=== PATIENT | male | born 1945 | race Caucasian/White ===

== ENCOUNTER 2016-09-22 08:17 | Emergency (ER) | payer MEDICARE ==
[~2016-09-22] VITALS: Ht 188 cm; Wt 102.3 kg
[~2016-09-22 08:17] MED LIST: ACIDOPHILUS PO; AMBIEN 5MG TABLE5 MG PO; AMOXICILLIN 50500 MG PO; APRESOLINE 10MG10 MG PO; ASPIRIN 81M81 MG/TA2 PO; ASPIRIN E.C. 8181 MG PO; B-121000 MCG PO; BACTRIM DS 8001 TAB PO; BENAZEPRIL20 MG PO; CENTRUM SILVER1 TA1 PO; CIPRO PO; DEMADEX 20MG20 M1 PO; DUO-KAPS1 CAP PO; EPA1000 MG PO; FLAGYL PO; FLAGYL250 MG PO; FLAGYL500 MG PO; FLOMAX 0.40.4 MG/CAP PO; FLOMAX0.4 MG PO; HCTZ 25MG25 MG PO; HYTRIN1 M1 PO; IMDUR 60MG60 MG/TAB PO; IMDUR60 MG PO; INVANZ INJ1 G/VIAL IV; KLOR-CON M2020 MEQ PO; LASIX 20MG TABL20 MG PO; LASIX 40MG TABL40 MG PO; LASIX 80MG TABL80 MG PO; LASIX40 MG PO; LEXAPRO10 MG PO; LIPITOR 80MG80 MG PO; LOTENSIN20 MG PO; MULTI VITAMINS1 TAB PO; MULTI-VITAMIN1 CTB PO; NEULASTA 66 MG/0.6 M SC; NORCO 325 MG-51 TAB PO; OMEGA 31000 MG PO; PLAVIX 75MG TAB75 MG PO; PROCRIT2000 U/ML IM; PROTONIX 40MG T40 MG PO; PROTONIX40 MG PO; PULMICORT180 MCG/A2 IH; SODIUM BICARB PO; SODIUM BICARBONATE PO; TOPROL XL 25MG25 MG PO; TOPROL XL 50MG50 MG PO; TOPROL XL50 MG PO; TYLENOL 500MG500 MG PO; TYLENOL 8 HR PO; UNKOWN; VANCOCIN H250 MG/CAP PO; VANCOMYCIN 11 G/VIAL IV; VANCOMYCIN250 MG/5 M PO; VIDAZA SC; VITAMIN B-1000 MCG/T PO; VITAMIN B121000 MCG PO; ZAROXOLYN 2.52.5 MG PO; ZOCOR80 MG PO; ZYLOPRIM 300MG300 MG PO; ZYLOPRIM100 MG PO; [UNRECOGNIZED DRUG - OTHER] IV
[2016-09-22 08:20] VITALS: TEMP 96.3
[2016-09-22 09:28] LABS: ADJUSTED CALCIUM 9.1 mg/dL (8.4-10.2); ALANINE AMINOTRANSFERASE 27 U/L (21-72); ALBUMIN 3.2 gm/dL (3.5-5.0); ALKALINE PHOSPHATASE 85 U/L (50-136); ANION GAP 11 mmol/L (7-16); BILIRUBIN,TOTAL 0.9 mg/dL (0.0-1.0); BLOOD UREA NITROGEN 67 mg/dL (9-20); CALCIUM 8.5 mg/dL (8.4-10.2); CARBON DIOXIDE 22 mmol/L (22-30); CHLORIDE 109 mmol/L (98-107); CREATININE, serum 2.56 mg/dL (0.66-1.25); GLUCOSE 155 mg/dL (74-106); LIPASE 143 U/L (23-300); SODIUM 142 mmol/L (137-145); TOTAL PROTEIN 6.5 gm/dL (6.4-8.2)
[2016-09-22 09:43] LABS: TROPONIN-I < 0.012 ng/mL (0.000-0.034)
[2016-09-22] MEDS ORDERED: ZYLOPRIM 300MG300 MG PO (10:40)
[2016-09-22] MEDS ORDERED: ASPIRIN 81M81 MG/TA2 PO (10:41)
[2016-09-22 10:59] LABS: EOS # 0.2 (0.0-0.7); EOS % 7.5 % (0-4.0); GRAN # 2.3 (1.4-6.5); INR 1.2 (0.8-3.0); LYMPH # 0.4 (1.2-3.4); MEAN CELL VOLUME 87 fl (80.0-100.0); MEAN CORPUSCULAR HGB CONC 30 g/dl (33.0-37.0); MONO # 0.2 (0.1-0.6); MONO % 5.5 % (1.7-9.3); PARTIAL THROMBOPLASTIN TIME 52.5 SECONDS (26.0-37.0); PROTHROMBIN TIME 13.9 SECONDS (9.7-12.8); RED BLOOD COUNT 3.74 M/mm3 (4.20-5.60); REDCELL DISTRIBUTION WIDTH-CV 16.9 % (11.5-14.5); WHITE BLOOD COUNT 3.1 K/mm3 (4.8-10.8)
[2016-09-22 11:03] LABS: HEMATOCRIT 32.7 % (42.0-52.0); HEMOGLOBIN 9.7 g/dl (13.5-18.0); MEAN CORPUSCULAR HEMOGLOBIN 26 pg (27.0-31.0)
[2016-09-22 11:05] LABS: PLATELET COUNT 45 K/mm3 (130-400)
[2016-09-22] MEDS ORDERED: NORCO 325 MG-51 TAB PO (12:33)
[2016-09-22 12:48] VITALS: BP 125/73; PULSE 64
== END 2016-09-22 12:50 | disposition home or self-care (01) ==
LOC: COL.ER 08:17
PROVIDERS: Emergency Medicine
DX: M79.602 Pain in left arm (principal); I10 Essential (primary) hypertension; Z95.2 Presence of prosthetic heart valve; I49.3 Ventricular premature depolarization; Z79.01 Long term (current) use of anticoagulants; Z79.82 Long term (current) use of aspirin

== ENCOUNTER 2016-10-12 11:00 | Outpatient (RCR) | payer MEDICARE ==
[2016-10-12] VITALS (10 sets, daily range): BP systolic 120–150; BP diastolic 51–75; PULSE 68–83; TEMP 97.4–98.1
[2016-10-12] MEDS ORDERED: VIDAZA100 MG SC (11:45)
[2016-12-17] MEDS ORDERED: LASIX 80MG TABL80 MG PO (16:07)
[2016-12-17] MEDS ORDERED: APRESOLINE 10MG10 MG PO (16:08)
[2016-12-17] MEDS ORDERED: ZYLOPRIM 300MG300 MG PO (16:08)
[2016-12-17] MEDS ORDERED: PROTONIX 40MG T40 MG PO (16:08)
[2016-12-17] MEDS ORDERED: ASPIRIN E.C. 8181 MG PO (16:09)
[2016-12-17] MEDS ORDERED: B-121000 MCG PO (16:09)
[2016-12-17] MEDS ORDERED: MULTI VITAMINS1 TAB PO (16:09)
[2016-12-17] MEDS ORDERED: FLOMAX 0.40.4 MG/CAP PO (16:10)
[2016-12-17] MEDS ORDERED: IMDUR 60MG60 MG/TAB PO (16:11)
[2016-12-17] MEDS ORDERED: LIPITOR 40MG TA40 MG PO (16:11)
[2016-12-17] MEDS ORDERED: TOPROL XL 25MG25 MG PO (16:12)
[2016-12-17] MEDS ORDERED: VIDAZA100 MG SQ (16:13)
[2016-12-17] MEDS ORDERED: PROCRIT2000 IM (16:13)
[2016-12-17] MEDS ORDERED: [UNRECOGNIZED DRUG - OTHER] IV (16:13)
== END 2017-01-09 | disposition still patient (30) ==
LOC: EUO
DX: D46.9 Myelodysplastic syndrome, unspecified (principal)
CPT/HCPCS: J1644; J7050; P9016

== ENCOUNTER 2016-12-17 14:17 | Inpatient (IN) | payer MEDICARE ==
[2016-12-17] VITALS (182 sets, daily range): BP systolic 88–120; BP diastolic 59–71; PULSE 115–118; TEMP 71–105.3; O2SAT 91–100
[~2016-12-17] VITALS: Ht 188 cm; Wt 107.1 kg
[~2016-12-17 14:17] MED LIST changes: +VIDAZA100 MG SC
[2016-12-17 15:11] LABS: MEAN CELL VOLUME 87 fl (80.0-100.0); MEAN CORPUSCULAR HGB CONC 30 g/dl (33.0-37.0); RED BLOOD COUNT 3.34 M/mm3 (4.20-5.60); WHITE BLOOD COUNT 7.6 K/mm3 (4.8-10.8)
[2016-12-17 15:17] LABS: HEMATOCRIT 29.2 % (42.0-52.0); HEMOGLOBIN 8.7 g/dl (13.5-18.0); MEAN CORPUSCULAR HEMOGLOBIN 26 pg (27.0-31.0)
[2016-12-17 15:19] LABS: PLATELET COUNT 43 K/mm3 (130-400)
[2016-12-17 15:24] LABS: ADD PATHOLOGY DIFF REVIEW NO
[2016-12-17 15:27] LABS: ADJUSTED CALCIUM 8.7 mg/dL (8.4-10.2); ALBUMIN 3.5 gm/dL (3.5-5.0); ANISOCYTOSIS 1+; BAND 28 % (0-10); BILIRUBIN,TOTAL 2.4 mg/dL (0.0-1.0); C-REACTIVE PROTEIN 6.1 mg/dL (0.0-0.9); CALCIUM 8.3 mg/dL (8.4-10.2); NEUTROPHILS 67 % (42.0-75.2); OVALOCYTES 1+; PLATELET ESTIMATE DECREASED (NORMAL); POIKILOCYTOSIS 2+; POTASSIUM 4.5 mmol/L (3.4-5.0); TOTAL CELLS COUNTED 100; TOTAL PROTEIN 6.8 gm/dL (6.4-8.2)
[2016-12-17 15:30] LABS: CREATININE, serum 4.49 mg/dL (0.66-1.25)
[2016-12-17] MEDS ORDERED: LASIX 80MG TABL80 MG PO (16:07)
[2016-12-17] MEDS ORDERED: APRESOLINE 10MG10 MG PO (16:08)
[2016-12-17] MEDS ORDERED: PROTONIX 40MG T40 MG PO (16:08)
[2016-12-17] MEDS ORDERED: ZYLOPRIM 300MG300 MG PO (16:08)
[2016-12-17] MEDS ORDERED: MULTI VITAMINS1 TAB PO (16:09)
[2016-12-17] MEDS ORDERED: ASPIRIN E.C. 8181 MG PO (16:09)
[2016-12-17] MEDS ORDERED: B-121000 MCG PO (16:09)
[2016-12-17] MEDS ORDERED: FLOMAX 0.40.4 MG/CAP PO (16:10)
[2016-12-17] MEDS ORDERED: LIPITOR 40MG TA40 MG PO (16:11)
[2016-12-17] MEDS ORDERED: IMDUR 60MG60 MG/TAB PO (16:11)
[2016-12-17] MEDS ORDERED: TOPROL XL 25MG25 MG PO (16:12)
[2016-12-17] MEDS ORDERED: VIDAZA100 MG SQ (16:13)
[2016-12-17] MEDS ORDERED: [UNRECOGNIZED DRUG - OTHER] IV (16:13)
[2016-12-17] MEDS ORDERED: PROCRIT2000 IM (16:13)
[2016-12-17 16:15] LABS: ERYTHROCYTE SEDIMENTATION RATE 15 mm/hr (0-30)
[2016-12-17 16:15] LABS: PH 5 (5-8); SQUAMOUS EPITHELIAL None Seen /hpf; URINE APPEARANCE Cloudy; URINE BACTERIA Rare /hpf; URINE BILIRUBIN Negative (NEGATIVE); URINE BLOOD 3+ (NEGATIVE); URINE COLOR Amber; URINE GLUCOSE 1+ (NEGATIVE); URINE KETONE Negative (NEGATIVE); URINE RBC 20-50 /hpf; URINE UROBILINOGEN Negative (NEGATIVE)
[2016-12-17 16:20] LABS: AMPHETAMINE URINE NEGATIVE; BARBITURATES URINE NEGATIVE; BENZODIAZEPINES URINE NEGATIVE; BUPRENORPHINE URINE NEGATIVE; METHADONE URINE NEGATIVE; OPIATES URINE NEGATIVE; OXYCODONE URINE NEGATIVE; PHENCYCLIDINE URINE NEGATIVE; PROPOXYPHENE URINE NEGATIVE; THC CANNABINOIDS URINE NEGATIVE
[2016-12-17 16:30] LABS: CEREBROSPINAL TUBE #1; CEREBROSPINAL TUBE #4; CSF APPEARANCE CLEAR; CSF COLOR COLORLESS
[2016-12-17 16:50] LABS: ACETAMINOPHEN < 10 ug/mL (10-30)
[2016-12-17 17:16] LABS: B-TYPE NATRIURETIC PEPTIDE 81500 pg/mL (0-125)
[2016-12-17 19:07] LABS: ARTERIAL BLD GAS O2 SATURATION 93.8 % (92-100); ARTERIAL BLD GAS TCO2 CT 17.8; ARTERIAL BLOOD GAS HCO3 16.9 meq/L (22-26); ARTERIAL BLOOD GAS PHT 7.34 C (7.35-7.45); ARTERIAL BLOOD GAS PO2 79.3 mmHg (80-100); ARTERIAL BLOOD GAS PO2T 79.3 (80-100); ARTERIAL BLOOD GAS pH 7.34 (7.35-7.45); OXYHEMOGLOBIN 92.8 %
[2016-12-17 19:10] LABS: ALLEN TEST YES; ALLENS TEST RESULT PASS; ATS? YES
== END 2016-12-17 21:20 | disposition short-term general hospital (02) | DRG 871 ==
LOC: COL.ER 14:17 → ICU 17:09
PROVIDERS: Emergency Medicine; Internal Medicine Cardiovascular Disease
PROC: 009U3ZX Drainage of Spinal Canal, Percutaneous Approach, Diagnostic (ICD-10-PCS; principal; 2016-12-17)
DX: A41.9 Sepsis, unspecified organism (principal); I21.4 Non-ST elevation (NSTEMI) myocardial infarction; I50.23 Acute on chronic systolic (congestive) heart failure; N17.9 Acute kidney failure, unspecified; I13.0 Hypertensive heart and chronic kidney disease with heart failure and stage 1 through stage 4 chronic kidney disease, or unspecified chronic kidney disease; Z95.2 Presence of prosthetic heart valve; Z87.891 Personal history of nicotine dependence; I25.5 Ischemic cardiomyopathy; D46.9 Myelodysplastic syndrome, unspecified; I25.10 Atherosclerotic heart disease of native coronary artery without angina pectoris; Z95.5 Presence of coronary angioplasty implant and graft; Z90.5 Acquired absence of kidney; N18.9 Chronic kidney disease, unspecified
CPT/HCPCS: 99223-AI; A4315; J0290; J0696; J1170; J1250; J1265; J1650; J1940; J2405; J3370; J7030; J7040

== ENCOUNTER → 2017-01-08 | Outpatient (REF) ==
[~2017-01-08] MED LIST changes: +LANOXIN 0.120.125 MG PO; +LIPITOR 40MG TA40 MG PO; +PROCRIT2000 IM; +RENVELA800 MG PO; +VANCOCIN HCL1 GM IV; +VIDAZA100 MG SQ
[2017-01-08 10:05] LABS: BASO # 0.1 (0.0-0.2); BASO % 2.4 % (0.0-2.0); EOS % 1.6 % (0-4.0); GRAN # 1.8 (1.4-6.5); GRAN % 71.9 % (42.2-75.2); LYMPH # 0.4 (1.2-3.4); LYMPH % 15.5 % (20.0-51.0); MEAN CELL VOLUME 93 fl (80.0-100.0); MEAN CORPUSCULAR HGB CONC 29 g/dl (33.0-37.0); MONO # 0.2 (0.1-0.6); MONO % 8.2 % (1.7-9.3); RED BLOOD COUNT 2.68 M/mm3 (4.20-5.60); REDCELL DISTRIBUTION WIDTH-CV 20.2 % (11.5-14.5); WHITE BLOOD COUNT 2.5 K/mm3 (4.8-10.8)
[2017-01-08 10:06] LABS: HEMATOCRIT 24.8 % (42.0-52.0); HEMOGLOBIN 7.2 g/dl (13.5-18.0); MEAN CORPUSCULAR HEMOGLOBIN 27 pg (27.0-31.0)
[2017-01-08 10:11] LABS: PLATELET COUNT 33 K/mm3 (130-400)
[2017-01-08 10:14] LABS: ADJUSTED CALCIUM 9.1 mg/dL (8.4-10.2); ALBUMIN 3.3 gm/dL (3.5-5.0); CALCIUM 8.5 mg/dL (8.4-10.2); POTASSIUM 4.8 mmol/L (3.4-5.0); TOTAL PROTEIN 6.9 gm/dL (6.4-8.2)
[2017-01-08 10:30] LABS: CREATININE, serum 4.99 mg/dL (0.66-1.25)
== END ==
LOC: ZLAB.STJ 09:49
PROVIDERS: Family Medicine
DX: Z01.89 Encounter for other specified special examinations (principal)

== ENCOUNTER 2017-01-12 09:30 | Outpatient (RCR) | payer OTHER, MEDICARE ==
[2017-01-11 15:16] LABS: ADD PATHOLOGY DIFF REVIEW NO
[2017-01-11 15:20] LABS: MEAN CELL VOLUME 94 fl (80.0-100.0); MEAN CORPUSCULAR HGB CONC 29 g/dl (33.0-37.0); PLATELET COUNT 52 K/mm3 (130-400); RED BLOOD COUNT 2.62 M/mm3 (4.20-5.60); REDCELL DISTRIBUTION WIDTH-CV 19.5 % (11.5-14.5); WHITE BLOOD COUNT 2.4 K/mm3 (4.8-10.8)
[2017-01-11 15:24] LABS: HEMATOCRIT 24.5 % (42.0-52.0); HEMOGLOBIN 7.1 g/dl (13.5-18.0); MEAN CORPUSCULAR HEMOGLOBIN 27 pg (27.0-31.0)
[2017-01-11 16:06] LABS: ANISOCYTOSIS 1+; BAND 6 % (0-10); EOSINOPHIL 1 % (0-4); HYPOCHROMIA 3+; NEUTROPHILS 74 % (42.0-75.2); TOTAL CELLS COUNTED 100
[2017-01-11 16:07] LABS: PLATELET ESTIMATE DECREASED (NORMAL); POIKILOCYTOSIS 1+
[2017-01-12] VITALS (9 sets, daily range): BP systolic 104–125; BP diastolic 50–65; PULSE 68–103; TEMP 97–98.1
[~2017-01-12] VITALS: Ht 188 cm; Wt 108.2 kg
[~2017-01-12 09:30] MED LIST changes: -LANOXIN 0.120.125 MG PO; -RENVELA800 MG PO; -VANCOCIN HCL1 GM IV
== END 2017-01-12 15:42 | disposition home or self-care (01) ==
LOC: EUO 09:30
PROVIDERS: Internal Medicine Nephrology
DX: N17.9 Acute kidney failure, unspecified (principal)
CPT/HCPCS: J7050; P9016

== ENCOUNTER 2017-02-03 20:10 | Inpatient (IN) | payer MEDICARE ==
[~2017-02-03] VITALS: Ht 188 cm; Wt 100.9 kg
[2017-02-03 21:29] LABS: BASO % 0.5 % (0.0-2.0); EOS # 0.1 (0.0-0.7); EOS % 1.2 % (0-4.0); GRAN # 3.2 (1.4-6.5); GRAN % 79.5 % (42.2-75.2); LYMPH # 0.4 (1.2-3.4); LYMPH % 8.9 % (20.0-51.0); MEAN CELL VOLUME 95 fl (80.0-100.0); MEAN CORPUSCULAR HGB CONC 31 g/dl (33.0-37.0); MONO # 0.4 (0.1-0.6); MONO % 9.4 % (1.7-9.3); RED BLOOD COUNT 2.55 M/mm3 (4.20-5.60); REDCELL DISTRIBUTION WIDTH-CV 19.5 % (11.5-14.5)
[2017-02-03 21:31] LABS: HEMATOCRIT 24.3 % (42.0-52.0); HEMOGLOBIN 7.4 g/dl (13.5-18.0); MEAN CORPUSCULAR HEMOGLOBIN 29 pg (27.0-31.0)
[2017-02-03 21:32] LABS: PLATELET COUNT 47 K/mm3 (130-400)
[2017-02-03 21:43] LABS: ADJUSTED CALCIUM 8.8 mg/dL (8.4-10.2); ALBUMIN 3.3 gm/dL (3.5-5.0); BILIRUBIN,TOTAL 1.4 mg/dL (0.0-1.0); CALCIUM 8.2 mg/dL (8.4-10.2); CREATININE, serum 2.63 mg/dL (0.66-1.25); POTASSIUM 4.1 mmol/L (3.4-5.0); TOTAL PROTEIN 7.8 gm/dL (6.4-8.2)
[2017-02-03 23:13] VITALS: BP 126/48; PULSE 75; TEMP 100.4
[2017-02-04 03:25] VITALS: BP 97/46; PULSE 69; TEMP 97.3
[2017-02-04 07:35] VITALS: BP 134/67; PULSE 79; TEMP 98.3
[2017-02-04 09:33] LABS: ADJUSTED CALCIUM 8.9 mg/dL (8.4-10.2); ALBUMIN 3.3 gm/dL (3.5-5.0); BILIRUBIN,TOTAL 1.7 mg/dL (0.0-1.0); CALCIUM 8.3 mg/dL (8.4-10.2); CREATININE, serum 3.22 mg/dL (0.66-1.25); POTASSIUM 4.1 mmol/L (3.4-5.0)
[2017-02-04 11:13] VITALS: BP 131/56; PULSE 76; TEMP 98.2
[2017-02-04 14:12] LABS: BASO % 0.3 % (0.0-2.0); GRAN # 2.3 (1.4-6.5); GRAN % 75.8 % (42.2-75.2); LYMPH # 0.3 (1.2-3.4); LYMPH % 10.3 % (20.0-51.0); MEAN CELL VOLUME 95 fl (80.0-100.0); MEAN CORPUSCULAR HGB CONC 30 g/dl (33.0-37.0); MEAN PLATELET VOLUME 10.3 fl (7.4-10.4); MONO # 0.4 (0.1-0.6); MONO % 12.3 % (1.7-9.3); RED BLOOD COUNT 2.43 M/mm3 (4.20-5.60); REDCELL DISTRIBUTION WIDTH-CV 19.7 % (11.5-14.5)
[2017-02-04 14:14] LABS: MEAN CORPUSCULAR HEMOGLOBIN 29 pg (27.0-31.0)
[2017-02-04 14:15] LABS: PLATELET COUNT 39 K/mm3 (130-400)
[2017-02-04 16:29] VITALS: BP 139/59; PULSE 86; TEMP 98
[2017-02-04 22:15] VITALS: BP 138/62; PULSE 83; TEMP 98.1
[2017-02-05] VITALS (7 sets, daily range): BP systolic 108–130; BP diastolic 40–61; PULSE 69–80; TEMP 97.3–99.4
[2017-02-05 07:27] LABS: MAGNESIUM 1.8 mg/dL (1.6-2.3); POTASSIUM 4.2 mmol/L (3.4-5.0)
[2017-02-05 07:34] LABS: MEAN CELL VOLUME 96 fl (80.0-100.0); MEAN CORPUSCULAR HGB CONC 30 g/dl (33.0-37.0); MEAN PLATELET VOLUME 10.7 fl (7.4-10.4); RED BLOOD COUNT 2.38 M/mm3 (4.20-5.60); REDCELL DISTRIBUTION WIDTH-CV 19.9 % (11.5-14.5); WHITE BLOOD COUNT 3.4 K/mm3 (4.8-10.8)
[2017-02-05 07:35] LABS: CREATININE, serum 4.23 mg/dL (0.66-1.25)
[2017-02-05 07:38] LABS: HEMATOCRIT 22.8 % (42.0-52.0); HEMOGLOBIN 6.8 g/dl (13.5-18.0); MEAN CORPUSCULAR HEMOGLOBIN 29 pg (27.0-31.0); PLATELET COUNT 42 K/mm3 (130-400)
[2017-02-05] MEDS ORDERED: RENVELA800 MG PO (09:59)
[2017-02-05] MEDS ORDERED: LANOXIN 0.120.125 MG PO (10:00)
[2017-02-05] MEDS ORDERED: AMBIEN 5MG TABLE5 MG PO (10:03)
[2017-02-06] VITALS (10 sets, daily range): BP systolic 116–127; BP diastolic 22–63; PULSE 64–81; TEMP 97.4–98.7
[2017-02-06 10:48] LABS: MEAN CELL VOLUME 97 fl (80.0-100.0); MEAN CORPUSCULAR HGB CONC 30 g/dl (33.0-37.0); MEAN PLATELET VOLUME 10.1 fl (7.4-10.4); RED BLOOD COUNT 2.25 M/mm3 (4.20-5.60); REDCELL DISTRIBUTION WIDTH-CV 19.9 % (11.5-14.5); RETIC % 1.8 % (0.5-3.52); WHITE BLOOD COUNT 3.1 K/mm3 (4.8-10.8)
[2017-02-06 10:50] LABS: HEMATOCRIT 21.8 % (42.0-52.0); HEMOGLOBIN 6.5 g/dl (13.5-18.0); MEAN CORPUSCULAR HEMOGLOBIN 29 pg (27.0-31.0); PLATELET COUNT 44 K/mm3 (130-400)
[2017-02-06 10:56] LABS: MAGNESIUM 1.8 mg/dL (1.6-2.3); POTASSIUM 4.2 mmol/L (3.4-5.0)
[2017-02-06 11:05] LABS: CREATININE, serum 4.88 mg/dL (0.66-1.25)
[2017-02-07] VITALS (12 sets, daily range): BP systolic 95–122; BP diastolic 41–83; PULSE 61–109; TEMP 98.4–98.9
[2017-02-07 01:04] LABS: HAPTOGLOBIN 62 mg/dL (36-195)
[2017-02-07 07:26] LABS: MEAN CELL VOLUME 96 fl (80.0-100.0); MEAN CORPUSCULAR HGB CONC 30 g/dl (33.0-37.0); RED BLOOD COUNT 2.69 M/mm3 (4.20-5.60); REDCELL DISTRIBUTION WIDTH-CV 19.9 % (11.5-14.5); WHITE BLOOD COUNT 2.6 K/mm3 (4.8-10.8)
[2017-02-07 07:36] LABS: HEMATOCRIT 25.9 % (42.0-52.0); HEMOGLOBIN 7.8 g/dl (13.5-18.0); MEAN CORPUSCULAR HEMOGLOBIN 29 pg (27.0-31.0)
[2017-02-07 07:37] LABS: PLATELET COUNT 38 K/mm3 (130-400)
[2017-02-07 08:03] LABS: CALCIUM 8.5 mg/dL (8.4-10.2); CREATININE, serum 3.37 mg/dL (0.66-1.25); POTASSIUM 3.8 mmol/L (3.4-5.0)
[2017-02-07] MEDS ORDERED: VANCOCIN HCL1 GM IV (10:42)
[2017-02-07] MEDS ORDERED: ASPIRIN E.C. 8181 MG PO (11:34)
[2017-02-08 13:07] LABS: ERYTHROPOIETIN 104 mIU/mL (())
== END 2017-02-07 14:00 | disposition home health service (06) | DRG 871 ==
LOC: COL.ER 20:10 → MEDICAL 22:11
PROVIDERS: Emergency Medicine; Family Medicine; Internal Medicine; Internal Medicine Cardiovascular Disease; Physician Assistant
PROC: 02HV33Z Insertion of Infusion Device into Superior Vena Cava, Percutaneous Approach (ICD-10-PCS; principal; 2017-02-06)
DX: A41.9 Sepsis, unspecified organism (principal); N18.6 End stage renal disease; I13.11 Hypertensive heart and chronic kidney disease without heart failure, with stage 5 chronic kidney disease, or end stage renal disease; D61.818 Other pancytopenia; I42.9 Cardiomyopathy, unspecified; E11.22 Type 2 diabetes mellitus with diabetic chronic kidney disease; Z99.2 Dependence on renal dialysis; I25.10 Atherosclerotic heart disease of native coronary artery without angina pectoris; Z95.5 Presence of coronary angioplasty implant and graft; Z95.2 Presence of prosthetic heart valve; D46.9 Myelodysplastic syndrome, unspecified; Z87.891 Personal history of nicotine dependence; I27.2 Other secondary pulmonary hypertension; I08.1 Rheumatic disorders of both mitral and tricuspid valves
CPT/HCPCS: 99223-AI; 99233-AI; 99239; G0365; G0378; G8978-GP; G8979-GP; J0692; J1940; J2704; J3370; J7030; J7050; P9040

== ENCOUNTER 2017-03-07 12:27 | Outpatient (RCR) | payer MEDICARE ==
[~2017-03-07] VITALS: Ht 188 cm; Wt 101.0 kg
[2017-03-07] VITALS (12 sets, daily range): BP systolic 136–169; BP diastolic 60–99; PULSE 74–90; TEMP 97.6–98.6
[~2017-03-07 12:27] MED LIST changes: +LANOXIN 0.120.125 MG PO; +RENVELA800 MG PO; +VANCOCIN HCL1 GM IV
[2017-04-13] MEDS ORDERED: PEPCID 20MG TAB20 MG PO (13:54)
[2017-04-13] MEDS ORDERED: LASIX 80MG TABL80 MG PO (13:56)
[2017-04-13] MEDS ORDERED: NEPRO PO (13:59)
[2017-04-13] MEDS ORDERED: PROBIOTIC FORMU1 CAP PO (14:08)
[2017-04-13] MEDS ORDERED: ULTRAM 50MG TAB50 MG PO (14:11)
[2017-04-13] MEDS ORDERED: MELATIN 3 MG-11 TAB PO (14:11)
[2017-04-13] MEDS ORDERED: TYLENOL 325MG325 MG PO (14:11)
[2017-05-19] MEDS ORDERED: PROTONIX 40MG T40 MG PO (08:32)
[2017-05-19] MEDS ORDERED: ASPIRIN E.C. 8181 MG PO (08:35)
[2017-05-19] MEDS ORDERED: PROCRIT2000 (08:36)
[2017-05-19] MEDS ORDERED: VIDAZA100 MG SQ (08:37)
[2017-05-19] MEDS ORDERED: PERCOCET 325 MG1 TA2 PO (10:24)
== END 2017-06-05 ==
LOC: EUO
DX: D46.9 Myelodysplastic syndrome, unspecified (principal)
CPT/HCPCS: P9037

== ENCOUNTER → 2017-03-08 | Outpatient (REF) ==
[2017-03-08 08:32] LABS: BASO % 0.8 % (0.0-2.0); EOS % 1.1 % (0-4.0); GRAN # 1.9 (1.4-6.5); GRAN % 71.4 % (42.2-75.2); LYMPH # 0.5 (1.2-3.4); LYMPH % 17.9 % (20.0-51.0); MEAN CELL VOLUME 100 fl (80.0-100.0); MEAN CORPUSCULAR HGB CONC 31 g/dl (33.0-37.0); MEAN PLATELET VOLUME 10.9 fl (7.4-10.4); MONO # 0.2 (0.1-0.6); MONO % 8.8 % (1.7-9.3); PLATELET COUNT 57 K/mm3 (130-400); RED BLOOD COUNT 2.67 M/mm3 (4.20-5.60); REDCELL DISTRIBUTION WIDTH-CV 19.5 % (11.5-14.5); WHITE BLOOD COUNT 2.6 K/mm3 (4.8-10.8)
[2017-03-08 08:33] LABS: HEMATOCRIT 26.8 % (42.0-52.0); HEMOGLOBIN 8.3 g/dl (13.5-18.0); MEAN CORPUSCULAR HEMOGLOBIN 31 pg (27.0-31.0)
[2017-03-08 08:37] LABS: CALCIUM 8.7 mg/dL (8.4-10.2); POTASSIUM 4.4 mmol/L (3.4-5.0)
[2017-03-08 09:27] LABS: CREATININE, serum 4.15 mg/dL (0.66-1.25)
== END ==
LOC: ZMSC 08:19
PROVIDERS: Surgery
DX: Z02.89 Encounter for other administrative examinations (principal)

== ENCOUNTER 2017-04-13 12:22 | Outpatient (CLI) | payer MEDICARE ==
[~2017-04-13] VITALS: Ht 188.1 cm; Wt 97.7 kg
[2017-04-13] VITALS (8 sets, daily range): BP systolic 119–132; BP diastolic 49–97; PULSE 53–89; TEMP 97.7–98.3
[2017-04-13] MEDS ORDERED: PEPCID 20MG TAB20 MG PO (13:54)
[2017-04-13] MEDS ORDERED: LASIX 80MG TABL80 MG PO (13:56)
[2017-04-13] MEDS ORDERED: NEPRO PO (13:59)
[2017-04-13] MEDS ORDERED: PROBIOTIC FORMU1 CAP PO (14:08)
[2017-04-13] MEDS ORDERED: TYLENOL 325MG325 MG PO (14:11)
[2017-04-13] MEDS ORDERED: MELATIN 3 MG-11 TAB PO (14:11)
[2017-04-13] MEDS ORDERED: ULTRAM 50MG TAB50 MG PO (14:11)
[2017-04-13 14:19] LABS: MEAN CELL VOLUME 102 fl (80.0-100.0); MEAN CORPUSCULAR HGB CONC 32 g/dl (33.0-37.0); MEAN PLATELET VOLUME 10.2 fl (7.4-10.4); PLATELET COUNT 53 K/mm3 (130-400); RED BLOOD COUNT 2.86 M/mm3 (4.20-5.60)
[2017-04-13 14:20] LABS: INR 1.4 (0.8-3.0); PROTHROMBIN TIME 15.5 SECONDS (9.7-12.8)
[2017-04-13 14:22] LABS: HEMATOCRIT 29.2 % (42.0-52.0); HEMOGLOBIN 9.2 g/dl (13.5-18.0); MEAN CORPUSCULAR HEMOGLOBIN 32 pg (27.0-31.0)
== END 2017-04-13 18:11 | disposition home or self-care (01) ==
LOC: COL.CAR 12:22
PROVIDERS: Radiology Diagnostic Radiology
DX: T82.7XXA Infection and inflammatory reaction due to other cardiac and vascular devices, implants and grafts, initial encounter (principal); N18.6 End stage renal disease; Z95.2 Presence of prosthetic heart valve
CPT/HCPCS: C1751; C1769; J1644; J2250; J3010; J3370; J7030; J7050

== ENCOUNTER → 2017-04-24 | Outpatient (CLI) | payer MEDICARE ==
[~2017-04-24] MED LIST changes: +MELATIN 3 MG-11 TAB PO; +NEPRO PO; +PEPCID 20MG TAB20 MG PO; +PROBIOTIC FORMU1 CAP PO; +TYLENOL 325MG325 MG PO; +ULTRAM 50MG TAB50 MG PO
== END ==
LOC: COL.RAD 11:42
DX: Z11.1 Encounter for screening for respiratory tuberculosis (principal); I51.7 Cardiomegaly; R09.89 Other specified symptoms and signs involving the circulatory and respiratory systems; Z95.828 Presence of other vascular implants and grafts

== ENCOUNTER 2017-05-18 21:31 | Inpatient (IN) | payer MEDICARE ==
[~2017-05-18] VITALS: Ht 188 cm; Wt 94.2 kg
[2017-05-18 22:34] LABS: BASO # 0.1 (0.0-0.2); EOS # 0.1 (0.0-0.7); GRAN # 4.3 (1.4-6.5); GRAN % 86.1 % (42.2-75.2); LYMPH # 0.4 (1.2-3.4); LYMPH % 7.3 % (20.0-51.0); MEAN CELL VOLUME 98 fl (80.0-100.0); MEAN CORPUSCULAR HGB CONC 32 g/dl (33.0-37.0); MONO # 0.2 (0.1-0.6); MONO % 4.4 % (1.7-9.3); RED BLOOD COUNT 3.29 M/mm3 (4.20-5.60)
[2017-05-18 22:36] LABS: HEMATOCRIT 32.1 % (42.0-52.0); HEMOGLOBIN 10.3 g/dl (13.5-18.0); MEAN CORPUSCULAR HEMOGLOBIN 31 pg (27.0-31.0)
[2017-05-18 22:37] LABS: PLATELET COUNT 41 K/mm3 (130-400)
[2017-05-18 22:38] LABS: ADJUSTED CALCIUM 8.6 mg/dL (8.4-10.2); ALANINE AMINOTRANSFERASE 20 U/L (21-72); ALBUMIN 4.2 gm/dL (3.5-5.0); ALKALINE PHOSPHATASE 122 U/L (50-136); BILIRUBIN,TOTAL 1.1 mg/dL (0.0-1.0); BLOOD UREA NITROGEN 52 mg/dL (9-20); CALCIUM 8.8 mg/dL (8.4-10.2); CARBON DIOXIDE 22 mmol/L (22-30); GLUCOSE 117 mg/dL (74-106); SODIUM 139 mmol/L (137-145); TOTAL PROTEIN 8.7 gm/dL (6.4-8.2)
[2017-05-18 22:41] LABS: INR 1.3 (0.8-3.0)
[2017-05-18 22:49] LABS: B-TYPE NATRIURETIC PEPTIDE 26700 pg/mL (0-125)
[2017-05-18 23:04] LABS: CREATININE, serum 5.58 mg/dL (0.66-1.25)
[2017-05-18 23:05] LABS: TROPONIN-I < 0.012 ng/mL (0.000-0.034)
[2017-05-18 23:14] LABS: CHLORIDE 105 mmol/L (98-107); POTASSIUM 4.3 mmol/L (3.4-5.0)
[2017-05-18 23:16] LABS: ANION GAP 12 mmol/L (7-16)
[2017-05-19 00:36] LABS: MAGNESIUM 1.8 mg/dL (1.6-2.3); PHOSPHOROUS 4.4 mg/dL (2.5-4.5)
[2017-05-19 01:17] VITALS: BP 125/73; PULSE 89; TEMP 98.6
[2017-05-19 03:19] VITALS: BP 124/59; PULSE 77; TEMP 97.4
[2017-05-19 08:30] VITALS: BP 128/61; PULSE 77; TEMP 98
[2017-05-19] MEDS ORDERED: PROTONIX 40MG T40 MG PO (08:32)
[2017-05-19] MEDS ORDERED: ASPIRIN E.C. 8181 MG PO (08:35)
[2017-05-19] MEDS ORDERED: PROCRIT2000 (08:36)
[2017-05-19] MEDS ORDERED: VIDAZA100 MG SQ (08:37)
[2017-05-19] MEDS ORDERED: PERCOCET 325 MG1 TA2 PO (10:24)
== END 2017-05-19 11:00 | disposition home or self-care (01) | DRG 313 ==
LOC: COL.ER 21:31 → MEDICAL 23:39
PROVIDERS: Emergency Medicine
DX: R07.89 Other chest pain (principal); N18.6 End stage renal disease; I12.0 Hypertensive chronic kidney disease with stage 5 chronic kidney disease or end stage renal disease; J90 Pleural effusion, not elsewhere classified; E87.70 Fluid overload, unspecified; E11.22 Type 2 diabetes mellitus with diabetic chronic kidney disease; Z95.2 Presence of prosthetic heart valve; Z95.5 Presence of coronary angioplasty implant and graft; Z99.2 Dependence on renal dialysis; Z85.47 Personal history of malignant neoplasm of testis; Z87.891 Personal history of nicotine dependence
CPT/HCPCS: J1170; J7030

== ENCOUNTER → 2017-06-20 | Outpatient (CLI) | payer MEDICARE ==
[~2017-06-20] MED LIST changes: +PERCOCET 325 MG1 TA2 PO; +PROCRIT2000
== END ==
LOC: ZCOL.LAB 14:32
DX: S81.802A Unspecified open wound, left lower leg, initial encounter (principal)

== ENCOUNTER 2017-07-12 08:55 | Outpatient (CLI) | payer MEDICARE ==
[~2017-07-12] VITALS: Ht 188.1 cm; Wt 94.8 kg
[2017-07-12 09:32] VITALS: BP 130/72; PULSE 78; TEMP 97.4
[2017-07-12 11:25] VITALS: BP 135/79; PULSE 77
[2017-07-12 11:45] VITALS: BP 135/65; PULSE 60
[2017-07-12 12:00] VITALS: BP 130/65; PULSE 60
[2017-07-12 13:00] VITALS: BP 135/67; PULSE 67
== END 2017-07-12 13:05 | disposition home or self-care (01) ==
LOC: COL.CAR 08:55
DX: T82.898A Other specified complication of vascular prosthetic devices, implants and grafts, initial encounter (principal); I12.0 Hypertensive chronic kidney disease with stage 5 chronic kidney disease or end stage renal disease; E11.22 Type 2 diabetes mellitus with diabetic chronic kidney disease; N18.6 End stage renal disease; I25.10 Atherosclerotic heart disease of native coronary artery without angina pectoris
CPT/HCPCS: Q9967

== ENCOUNTER 2017-07-24 07:03 | Outpatient (CLI) | payer MEDICARE ==
[~2017-07-24] VITALS: Ht 188 cm; Wt 94.1 kg
[~2017-07-24 07:03] MED LIST changes: +ZYLOPRIM 100MG100 MG PO
[2017-07-24 07:44] VITALS: BP 117/61; PULSE 82; TEMP 97.9
[2017-07-24] MEDS ORDERED: PEPCID 20MG TAB20 MG PO (07:48)
[2017-07-24] MEDS ORDERED: LASIX 80MG TABL80 MG PO (07:50)
[2017-07-24] MEDS ORDERED: ULTRAM 50MG TAB50 MG PO (07:54)
[2017-07-24] MEDS ORDERED: MELATONIN 3MG PO (07:54)
[2017-07-24 09:41] LABS: BASO % 0.9 % (0.0-2.0); EOS # 0.1 (0.0-0.7); EOS % 4.7 % (0-4.0); GRAN # 1.4 (1.4-6.5); GRAN % 67.9 % (42.2-75.2); LYMPH # 0.4 (1.2-3.4); LYMPH % 18.9 % (20.0-51.0); MEAN CELL VOLUME 102 fl (80.0-100.0); MEAN CORPUSCULAR HGB CONC 31 g/dl (33.0-37.0); MEAN PLATELET VOLUME 10.8 fl (7.4-10.4); MONO # 0.2 (0.1-0.6); MONO % 7.1 % (1.7-9.3); RED BLOOD COUNT 2.21 M/mm3 (4.20-5.60); REDCELL DISTRIBUTION WIDTH-CV 15.1 % (11.5-14.5)
[2017-07-24 09:45] VITALS: BP 113/49; PULSE 75; TEMP 98.1
[2017-07-24 10:01] LABS: HEMATOCRIT 22.5 % (42.0-52.0); MEAN CORPUSCULAR HEMOGLOBIN 32 pg (27.0-31.0)
[2017-07-24 10:03] LABS: PLATELET COUNT 40 K/mm3 (130-400)
[2017-07-24 10:15] VITALS: BP 125/49; PULSE 76; TEMP 98.1
== END 2017-07-24 12:00 | disposition home or self-care (01) ==
LOC: SDCO 07:03
PROVIDERS: Pathology Anatomic Pathology & Clinical Pathology
DX: D46.9 Myelodysplastic syndrome, unspecified (principal); I25.10 Atherosclerotic heart disease of native coronary artery without angina pectoris; I25.2 Old myocardial infarction; I13.2 Hypertensive heart and chronic kidney disease with heart failure and with stage 5 chronic kidney disease, or end stage renal disease; E11.22 Type 2 diabetes mellitus with diabetic chronic kidney disease; N18.6 End stage renal disease; I50.9 Heart failure, unspecified; J44.9 Chronic obstructive pulmonary disease, unspecified; K21.9 Gastro-esophageal reflux disease without esophagitis; K76.6 Portal hypertension; I48.91 Unspecified atrial fibrillation; D69.6 Thrombocytopenia, unspecified; Z88.3 Allergy status to other anti-infective agents; Z88.2 Allergy status to sulfonamides; Z90.5 Acquired absence of kidney; Z90.49 Acquired absence of other specified parts of digestive tract; Z99.2 Dependence on renal dialysis; Z87.891 Personal history of nicotine dependence
CPT/HCPCS: J2250; J2704; J3010

== ENCOUNTER → 2017-07-31 | Outpatient (CLI) | payer MEDICARE ==
[~2017-07-31] MED LIST changes: +MELATONIN 3MG PO
== END ==
LOC: COL.RAD 09:28
DX: R16.1 Splenomegaly, not elsewhere classified (principal); R18.8 Other ascites; K76.9 Liver disease, unspecified

== ENCOUNTER → 2017-08-09 | Outpatient (CLI) | payer MEDICARE ==
[~2017-08-09] VITALS: Ht 188 cm; Wt 92.3 kg
[2017-08-09 11:21] VITALS: BP 157/77; PULSE 98
[2017-08-09 12:07] VITALS: BP 146/86; PULSE 98
== END ==
LOC: EUO 10:36 → COL.RAD 11:00
DX: Z49.01 Encounter for fitting and adjustment of extracorporeal dialysis catheter (principal)

== ENCOUNTER → 2017-08-13 | Outpatient (CLI) | payer MEDICARE | LOC: COL.RAD 07:30 | DX: K74.60 Unspecified cirrhosis of liver (principal); Z91.15 Patient's noncompliance with renal dialysis; R16.1 Splenomegaly, not elsewhere classified; R18.8 Other ascites; I71.4 Abdominal aortic aneurysm, without rupture; Z99.2 Dependence on renal dialysis | CPT/HCPCS: Q9967 ==

== ENCOUNTER → 2017-08-20 | Outpatient (CLI) | payer MEDICARE | LOC: COL.RAD 07:30 | DX: K74.60 Unspecified cirrhosis of liver (principal); K76.9 Liver disease, unspecified; R16.1 Splenomegaly, not elsewhere classified | CPT/HCPCS: Q9967 ==

== ENCOUNTER → 2017-12-27 | Outpatient (CLI) | payer MEDICARE ==
[~2017-12-27] VITALS: Ht 188 cm; Wt 85.5 kg
[2017-12-27 14:10] VITALS: BP 124/70; PULSE 77
[2017-12-27 16:21] VITALS: BP 126/79; PULSE 68
== END ==
LOC: COL.RAD 08:46
DX: R18.8 Other ascites (principal)

== ENCOUNTER → 2018-01-10 | Outpatient (CLI) | payer MEDICARE ==
[~2018-01-10] VITALS: Ht 188 cm; Wt 86.1 kg
[2018-01-10 12:26] VITALS: BP 121/73; PULSE 87
[2018-01-10 14:24] VITALS: BP 136/76; PULSE 86
== END ==
LOC: COL.RAD 12:05
DX: R18.8 Other ascites (principal)

== ENCOUNTER → 2018-01-28 | Outpatient (CLI) | payer MEDICARE ==
[~2018-01-28] VITALS: Ht 188 cm; Wt 87.0 kg
[2018-01-28 08:24] VITALS: BP 123/68; PULSE 43
[2018-01-28 09:40] VITALS: BP 133/75; PULSE 94
== END ==
LOC: COL.RAD 08:08
DX: R18.8 Other ascites (principal)

== ENCOUNTER 2018-03-05 09:00 | Outpatient (RCR) | payer MEDICARE ==
[~2018-03-05] VITALS: Ht 188 cm; Wt 90.9 kg
[2018-03-05] VITALS (9 sets, daily range): BP systolic 98–121; BP diastolic 57–75; PULSE 71–84; TEMP 97.2–98.6
== END 2018-03-05 14:00 | disposition home or self-care (01) ==
LOC: EUO 09:00
DX: D46.A Refractory cytopenia with multilineage dysplasia (principal); D50.9 Iron deficiency anemia, unspecified
CPT/HCPCS: J7050; P9016

== ENCOUNTER → 2018-03-05 | Outpatient (CLI) | payer MEDICARE ==
[~2018-03-05] VITALS: Ht 188 cm; Wt 90.2 kg
[2018-03-05 14:17] VITALS: BP 121/68; PULSE 71
[2018-03-05 15:34] VITALS: BP 123/86; PULSE 74
== END ==
LOC: COL.RAD 13:30
DX: D50.9 Iron deficiency anemia, unspecified (principal); D46.A Refractory cytopenia with multilineage dysplasia; R18.8 Other ascites
CPT/HCPCS: 19804

== ENCOUNTER → 2018-03-21 | Outpatient (CLI) | payer MEDICARE ==
[~2018-03-21] VITALS: Ht 188 cm; Wt 86.1 kg
[~2018-03-21] MED LIST changes: +PROBIOTIC ACID1 EAC3 PO
[2018-03-21 13:39] VITALS: BP 135/80; PULSE 79
[2018-03-21 16:05] VITALS: BP 140/93; PULSE 82
== END ==
LOC: COL.RAD 12:45
DX: K70.31 Alcoholic cirrhosis of liver with ascites (principal)

== ENCOUNTER → 2018-04-04 | Outpatient (CLI) | payer MEDICARE ==
[~2018-04-04] VITALS: Ht 188 cm; Wt 85.3 kg
[2018-04-04 12:12] VITALS: BP 101/65; PULSE 50
[2018-04-04 13:55] VITALS: BP 99/54; PULSE 74
== END ==
LOC: COL.RAD 11:49
DX: R18.8 Other ascites (principal)